=== PATIENT | male | born 1995 | race Caucasian/White ===

== ENCOUNTER 2024-01-27 20:30 | Emergency (ER) | payer OTHER, SELFPAY ==
[2024-01-27 20:36] VITALS: BP 148/86
[2024-01-27 20:50] LABS: % Basophils 0.2 % (0-2); % Eosinophils 0.1 % (0-6); % Immature Granulocytes 0.2 % (0-0.5); % Lymphocytes 11.7 % (20.5-51.1); % Monocytes 11.9 % (1.7-9.3); % Neutrophils 75.9 % (42.2-75.2); Absolute Neutrophils 6.2 10^3/uL (1.4-6.5); Hematocrit 43.9 % (39.0-52.0); Hemoglobin 16.2 g/dL (13.0-18.0); Mean Corp Hgb Conc. 36.9 g/dL (33.0-37.0); Mean Corpuscular Hgb 29.8 pg (27.0-31.0); Mean Corpuscular Volume 80.8 fL (80.0-94.0); Mean Platelet Volume 9.6 fL (7.4-10.4); Nucleated Red Blood Cells % 0 % (-); Platelet Count 245 10^3/uL (130-400); Red Blood Cell Count 5.43 10^6/uL (4.70-6.10); White Blood Cell Count 8.1 10^3/uL (4.8-10.8)
[2024-01-27 21:04] LABS: ALT (SGPT) 51 U/L (0-50); AST (SGOT) 62 U/L (17-59); Albumin 5.3 g/dl (3.5-5.0); Alkaline Phosphatase 63 U/L (38-126); Blood Urea Nitrogen 13 mg/dl (9-20); Calcium 10.5 mg/dl (8.4-10.2); Carbon Dioxide 25 mmol/L (22-30); Chloride 101 mmol/L (98-107); Glucose 101 mg/dl (70-99); Potassium 3.7 mmol/L (3.5-5.1); Sodium 139 mmol/L (135-145); Total Bilirubin 1.5 mg/dl (0.2-1.3); eGFR > 60.00
[2024-01-27 21:05] LABS: Lipase 61 U/L (23-300)
[2024-01-27 21:14] LABS: Troponin I < 0.012 ng/ml
--- NOTE | 2024-01-27 21:49 | ED.GENMED ---
History of Present Illness
<TOPHER Porras Jr. Last Filed: 01/29/24 10:03>
General
Chief Complaint: Chest Pain
Source: patient and family
Exam Limitations: none
Time Seen by Provider: 01/27/24 21:23
Nursing documentation reviewed up to this point in time: agreed with
History of Present Illness
History of Present Illness:
28-year-old male presenting to the emergency department today with concerns of lower chest and upper abdominal pain starting roughly an hour ago while in the car has felt a little bit off and has had some upper abdominal pain intermittently
throughout the day today. Symptoms have improved since onset had associated nausea no vomiting no changes in bowel movements. Denies any shortness of breath diaphoresis.
Review of Systems
<TOPHER Porras Jr. Last Filed: 01/29/24 10:03>
Review of Systems
Allergies reviewed?: Yes
All Other Systems: ROS reviewed and negative except as documented in HPI and ROS
Phy Exam
<TOPHER Porras Jr. Last Filed: 01/29/24 10:03>
Physical Exam
Physical Exam:
GENERAL: Alert , in no apparent distress
EYE: pupils equal and reactive
NECK: Supple, no significant adenopathy.
ENT: o/p clr, mmm.
CARDIAC: Regular rate and rhythm .
LUNGS: Clear breath sounds bilaterally, no acute respiratory distress, no wheezes/rales/rhonchi
ABDOMEN: Right upper quad abdominal pain but negative Garcia's otherwise abdomen soft, without focal tenderness, no r/g, no cvat
NEUROLOGICAL: Alert and oriented, no focal neuro deficits
SKIN: Warm and dry, skin intact.
MUSCULOSKELETAL: No edema, well perfused.
PSYCH: Normal and appropriate interaction.
Scores
<TOPHER Porras Jr. Last Filed: 01/29/24 10:03>
Heart Score for Chest Pain Patients
Heart Score for Chest Pain Patients: 0
Heart Score Risk: 2.5% MACE over next 6 weeks
<Lola Harris DO - Last Filed: 01/28/24 01:34>
Heart Score for Chest Pain Patients
STEMI patient?: No
History: Slightly or Non-Suspicious
ECG: Normal
Age: </= 45 years
Risk Factors: No Risk Factors
Troponin: </= Normal Limit
Heart Score for Chest Pain Patients: 0
Heart Score Risk: 2.5% MACE over next 6 weeks
Course
<Jake Duenas Jr., PA-C - Last Filed: 01/29/24 10:03>
Orders/Labs/Results
Orders:
Orders
01/27/24 20:32
ECG [Electrocardiogram (*1)] Urgent
Reason for Study: Chest Pain
EKG- Treatment ONCE
01/27/24 20:44
Complete Blood Count/With Diff Urgent
Comprehensive Metabolic Panel Urgent
Lipase Urgent
Troponin I Urgent
01/27/24 21:23
Chest [CR Chest - 2 Views ] Urgent
Comment:
Reason For Exam: cp
01/27/24 21:37
US Abdomen Complete/Upper Urgent
Comment:
Reason For Exam: RUQ pain
Abnormal Lab Results
01/27/24
20:44
Absolute Lymphs (auto) 1.0 L 10^3/uL
(1.2-3.4)
Absolute Monos (auto) 1.0 H 10^3/uL
(0.1-0.6)
Neutrophils % 75.9 H %
(42.2-75.2)
Lymphocytes % 11.7 L %
(20.5-51.1)
Monocytes % 11.9 H %
(1.7-9.3)
Glucose 101 H mg/dl
(70-99)
Calcium 10.5 H mg/dl
(8.4-10.2)
Total Bilirubin 1.5 H mg/dl
(0.2-1.3)
AST 62 H U/L
(17-59)
ALT 51 H U/L
(0-50)
Albumin 5.3 H g/dl
(3.5-5.0)
01/27/24 20:44
01/27/24 20:44
Vital Signs
Initial and Last Documented VS:
Initial Vital Signs
Temp Pulse Resp BP Pulse Ox
97.9 F 77 16 148/86 98
01/27/24 20:36 01/27/24 20:36 01/27/24 20:36 01/27/24 20:36 01/27/24 20:36
Last Documented Vital Signs
Temp Pulse Resp BP Pulse Ox
98.4 F 82 18 130/85 98
01/27/24 23:01 01/27/24 23:01 01/27/24 23:01 01/27/24 23:01 01/27/24 23:01
<Lola Harris, DO - Last Filed: 01/28/24 01:34>
Orders/Labs/Results
Orders:
Orders
01/27/24 20:32
ECG [Electrocardiogram (*1)] Urgent
Reason for Study: Chest Pain
EKG- Treatment ONCE
01/27/24 20:44
Complete Blood Count/With Diff Urgent
Comprehensive Metabolic Panel Urgent
Lipase Urgent
Troponin I Urgent
01/27/24 21:23
Chest [CR Chest - 2 Views ] Urgent
Comment:
Reason For Exam: cp
01/27/24 21:37
US Abdomen Complete/Upper Urgent
Comment:
Reason For Exam: RUQ pain
Abnormal Lab Results
01/27/24
20:44
Absolute Lymphs (auto) 1.0 L 10^3/uL
(1.2-3.4)
Absolute Monos (auto) 1.0 H 10^3/uL
(0.1-0.6)
Neutrophils % 75.9 H %
(42.2-75.2)
Lymphocytes % 11.7 L %
(20.5-51.1)
Monocytes % 11.9 H %
(1.7-9.3)
Glucose 101 H mg/dl
(70-99)
Calcium 10.5 H mg/dl
(8.4-10.2)
Total Bilirubin 1.5 H mg/dl
(0.2-1.3)
AST 62 H U/L
(17-59)
ALT 51 H U/L
(0-50)
Albumin 5.3 H g/dl
(3.5-5.0)
01/27/24 20:44
01/27/24 20:44
Vital Signs
Initial and Last Documented VS:
Initial Vital Signs
Temp Pulse Resp BP Pulse Ox
97.9 F 77 16 148/86 98
01/27/24 20:36 01/27/24 20:36 01/27/24 20:36 01/27/24 20:36 01/27/24 20:36
Last Documented Vital Signs
Temp Pulse Resp BP Pulse Ox
98.4 F 82 18 130/85 98
01/27/24 23:01 01/27/24 23:01 01/27/24 23:01 01/27/24 23:01 01/27/24 23:01
<Jake Duenas Jr., TOPHER - Last Filed: 01/29/24 10:03>
MDM/Problems Addressed
MDM/Problems Addressed:
28-year-old male presenting to the emergency department today with concerns of upper abdominal pain lower chest discomfort starting while in the car lasted for roughly an hour and has since significantly improved associated nausea no vomiting no
fevers upon arrival vital signs are normal labs were obtained that showed slightly elevated liver function test and bilirubin level but otherwise labs unremarkable EKG normal troponin negative does not seem to be consistent with ACS normal heart
lung exam does have some reproducible pain to the right upper quadrant with negative Garcia's no guarding. Improved symptoms after receiving topical medication appears stable for outpatient follow-up return precautions given.
<Lola Harris DO - Last Filed: 01/28/24 01:34>
*Radiology
Radiology exam reviewed: preliminary read by ED provider (Chest x-ray is unremarkable) and radiology read reviewed
*Pulse Oximetry
Patient hypoxic: no
*EKG
Interpreted by ED Provider?: Yes
Interpretation: normal
Comparison EKG: no comparison EKG present
Rate: normal
Rhythm: sinus
[place]: normal axis
Interval: normal interval
QRS Pattern: normal QRS
Ischemia: no ischemia
*Chamber Walker Interpretation
Rate: normal
Interpretation: normal
Rhythm: sinus
*Critical Care Note
Total Time (30-74mins, 75-104mins- exclusive of procedures): Not Applicable
ED Attending Note
<Jake Duenas Jr., PA-C - Last Filed: 01/29/24 10:03>
-
Portions of this chart may have been created with voice recognition software.� Occasional wrong word or��sound alike� substitutions may have occurred due to the inherent limitations of voice recognition software.
<Lola Harris DO - Last Filed: 01/28/24 01:34>
ED Attending Note
Patient seen and examined by attending physician: Yes
I performed the substantive portion of visit, reviewed & personally made and approve the management plan that is documented in note by myself or FRANKIE.: Yes
ED Attending Note:
28-year-old gentleman with longstanding history of GERD, chronically maintained on omeprazole 40 mg daily complains of acute epigastric pain tonight, much worse than his typical gastritis/GERD symptoms and was concerned for a possible heart attack.
He does admit that GERD symptoms promptly return if he attempts to discontinue daily omeprazole. He has been following with GI and underwent upper endoscopy perhaps 1 and half to 2 years ago.
He did have 1 glass of wine tonight and he does admit to moderate daily caffeine consumption.
Pain has resolved since arrival to the ED and he is eager to be discharged to home.
28-year-old appears his stated age, awake and alert, appears in no acute distress.
Abdomen is soft, nondistended, without appreciable tenderness.
Labs remarkable for minimally elevated LFTs thus concern for biliary colic as cause for pain.
EKG is unremarkable. Normal troponin. No significant risk factors for CAD. Chest x-ray shows clear lung gonzalez, normal heart size, normal mediastinum.
Abdominal ultrasound is unremarkable. Normal gallbladder. No stones nor gallbladder wall thickening. Common bile duct is normal at 3 mm.
I suspect exacerbation of his gastritis/GERD and recommend he temporarily increase omeprazole to twice daily dosing.
Avoid any further alcoholic beverages and recommend he limit/discontinue caffeinated beverages as well.
Follow-up with PCP and recommend he follow-up with GI as well.
Discharge Plan
Departure
Patient Disposition: Home (Routine Discharge)
Date of Disposition: 01/28/24
Time of Disposition: 01:32
Patient with high blood pressure during this ER visit?: No
Condition: Good
Discharge Problem:
Acute gastritis
Instructions: Acid Reflux and GERD in Adults (DC)
Prescriptions:
New
omeprazole 40 mg capsule,delayed release(DR/EC)
40 mg PO BID Qty: 60 0RF
sucralfate [Carafate] 1 gram tablet
1 g PO QIDPRN PRN (Reason: ACID REFLUX) Qty: 60 0RF
Referrals:
José Escobar MD [Family Provider] - Call in 1-3 days for appt
Interventions
Interventions:
*Risk Screen - Suicide Last Done: 01/27/24 20:36
*General Assessment Last Done: 01/27/24 20:36
*Neglect/Abuse Screening Last Done: 01/27/24 20:36
*Nursing Disposition Last Done: 01/28/24 01:38
ED- Cardiac Assessment Last Done: 01/27/24 22:00
Discharge Date and Time
Discharge Date/Time: 01/28/24 01:39
Print Language: RUSSIAN
[2024-01-27 23:01] VITALS: BP 130/85; BMI 22.5
== END 2024-01-28 01:39 | disposition home or self-care (01) ==
LOC: EMR 20:30
PROVIDERS: Emergency Medicine; EMERGENCY PHYSICIAN Emergency Medicine; FAMILY PHYSICIAN Internal Medicine Cardiovascular Disease
DX: K29.00 Acute gastritis without bleeding (principal); K21.9 Gastro-esophageal reflux disease without esophagitis
CPT/HCPCS: 99284; 71046; 76700; 80053; 83690; 84484; 85025; 93005